=== PATIENT | female | born 1940 ===

== ENCOUNTER → 2019-05-10 | Outpatient (CLI) | payer MEDICARE ==
[~2019-05-10] MED LIST: ASPI-496 PO; ATOR10TA9 PO; BUPR150T13 PO; CALC500T43 PO; DENO60DI SQ; DILT120T3 PO; DONE5TAB7 PO; FLUT1BLS INH; HYDR-826 PO; MIRT45TA61 PO; ONDA8TAB9 PO; PANT40TA5 PO; SERT50TA28 PO; TIOT18CA INH; TRAZ50TA66 PO
== END | disposition home or self-care (01) ==
LOC: PETCFH 08:47
PROVIDERS: ATTEND Pathology Hematology
DX: C34.01 Malignant neoplasm of right main bronchus (principal); C78.1 Secondary malignant neoplasm of mediastinum; C77.8 Secondary and unspecified malignant neoplasm of lymph nodes of multiple regions; R91.8 Other nonspecific abnormal finding of lung field
CPT/HCPCS: 78815; A9552

== ENCOUNTER 2019-05-16 11:18 | Outpatient (CLI) | payer MEDICARE ==
[~2019-05-16] VITALS: Ht 177.8 cm; Wt 84.9 kg
== END 2019-05-16 23:59 | disposition home or self-care (01) ==
LOC: INFUSION 11:18
PROVIDERS: ATTEND Pathology Hematology
DX: Z02.9 Encounter for administrative examinations, unspecified (principal)

== ENCOUNTER 2019-05-19 09:17 | Outpatient (CLI) | payer MEDICARE | END 2019-05-19 23:59 | disposition home or self-care (01) | LOC: ROC 09:17 | PROVIDERS: ATTEND Radiology Radiation Oncology | DX: C34.11 Malignant neoplasm of upper lobe, right bronchus or lung (principal) | CPT/HCPCS: 99214; G0463 ==

== ENCOUNTER → 2019-06-05 | Outpatient (CLI) | payer MEDICARE ==
[~2019-06-05] MED LIST changes: +GADOTERATE 7.5 MMOL/15 ML SYR ONE
== END | disposition home or self-care (01) ==
LOC: CFH 15:59
PROVIDERS: ATTEND Radiology Radiation Oncology
DX: C79.51 Secondary malignant neoplasm of bone (principal); I10 Essential (primary) hypertension
CPT/HCPCS: 72158; A9575

== ENCOUNTER → 2019-08-14 | Outpatient (CLI) | payer MEDICARE ==
[~2019-08-14] MED LIST changes: -GADOTERATE 7.5 MMOL/15 ML SYR ONE; +OMNIPAQUE 350 MG/ML, 100ML BOTTLE ONE
== END | disposition home or self-care (01) ==
LOC: CFH 12:31
PROVIDERS: ATTEND Radiology Radiation Oncology
DX: C79.51 Secondary malignant neoplasm of bone (principal); C77.1 Secondary and unspecified malignant neoplasm of intrathoracic lymph nodes; J84.10 Pulmonary fibrosis, unspecified; R91.1 Solitary pulmonary nodule; K76.89 Other specified diseases of liver; N20.0 Calculus of kidney
CPT/HCPCS: 71260; 74177; Q9967

== ENCOUNTER 2019-08-24 09:12 | Outpatient (CLI) | payer MEDICARE ==
[~2019-08-24 09:12] MED LIST changes: -OMNIPAQUE 350 MG/ML, 100ML BOTTLE ONE
== END 2019-08-24 23:59 | disposition home or self-care (01) ==
LOC: ROC 09:12
PROVIDERS: ATTEND Radiology Radiation Oncology
DX: C77.1 Secondary and unspecified malignant neoplasm of intrathoracic lymph nodes (principal); C34.32 Malignant neoplasm of lower lobe, left bronchus or lung; C79.51 Secondary malignant neoplasm of bone
CPT/HCPCS: 99213; G0463

== ENCOUNTER → 2019-11-02 | Outpatient (CLI) | payer MEDICARE ==
[~2019-11-02] MED LIST changes: +OMNIPAQUE 350 MG/ML, 100ML BOTTLE ONE; -PANT40TA5 PO; +PANT40TA6 PO
== END | disposition home or self-care (01) ==
LOC: EDSTATUS 14:30 → CFH 14:36
PROVIDERS: ATTEND Pathology Hematology
DX: C79.51 Secondary malignant neoplasm of bone (principal); C34.01 Malignant neoplasm of right main bronchus; R91.1 Solitary pulmonary nodule; J98.4 Other disorders of lung; J84.10 Pulmonary fibrosis, unspecified; K76.89 Other specified diseases of liver; N20.0 Calculus of kidney; M89.9 Disorder of bone, unspecified
CPT/HCPCS: 71260; 74177; Q9967

== ENCOUNTER → 2019-12-07 | Outpatient (CLI) | payer MEDICARE ==
[~2019-12-07] MED LIST changes: +GADOTERATE 7.5 MMOL/15 ML VIAL ONE; -OMNIPAQUE 350 MG/ML, 100ML BOTTLE ONE
== END | disposition home or self-care (01) ==
LOC: RAD 12:41
PROVIDERS: ATTEND Radiology Radiation Oncology
DX: C79.51 Secondary malignant neoplasm of bone (principal); C77.1 Secondary and unspecified malignant neoplasm of intrathoracic lymph nodes; M50.31 Other cervical disc degeneration, high cervical region; M48.02 Spinal stenosis, cervical region; M25.78 Osteophyte, vertebrae
CPT/HCPCS: 72156; A9575

== ENCOUNTER → 2020-01-15 | Outpatient (CLI) | payer MEDICARE ==
[~2020-01-15] MED LIST changes: -GADOTERATE 7.5 MMOL/15 ML VIAL ONE; +OMNIPAQUE 350 MG/ML, 100ML BOTTLE ONE
== END | disposition home or self-care (01) ==
LOC: CFH 12:34
PROVIDERS: ATTEND Radiology Radiation Oncology
DX: C34.01 Malignant neoplasm of right main bronchus (principal); G95.89 Other specified diseases of spinal cord; K76.89 Other specified diseases of liver; R91.8 Other nonspecific abnormal finding of lung field
CPT/HCPCS: 71260; 74177; Q9967

== ENCOUNTER 2020-01-25 06:19 | Day surgery (SDC) | payer MEDICARE ==
[~2020-01-25] VITALS: Ht 152.4 cm; Wt 52.3 kg
[~2020-01-25 06:19] MED LIST changes: -OMNIPAQUE 350 MG/ML, 100ML BOTTLE ONE
[2020-01-25 07:22] VITALS: BP 132/72
[2020-01-25] MEDS ORDERED: SODIUM CHLORIDE 0.9% 1,000 ML IV SCH (07:30)
[2020-01-25] MEDS ORDERED: FENTANYL PF 100 MCG/2ML ONE (08:13)
[2020-01-25] MEDS ORDERED: FLUMAZENIL 0.1 MG/1 ML, 5ML ONE (08:13)
[2020-01-25] MEDS ORDERED: MIDAZOLAM 1 MG/ML, 5ML ONE ×2 (08:13)
[2020-01-25] MEDS ORDERED: NALOXONE 1 MG/ML, 2ML ONE (08:14)
== END 2020-01-25 09:40 | disposition home or self-care (01) ==
LOC: RAD 06:19 → OUT 09:40
PROVIDERS: ATTEND Pathology Hematology
DX: R91.1 Solitary pulmonary nodule (principal); C34.01 Malignant neoplasm of right main bronchus; J44.9 Chronic obstructive pulmonary disease, unspecified; I10 Essential (primary) hypertension; F17.210 Nicotine dependence, cigarettes, uncomplicated; Z79.899 Other long term (current) drug therapy; Z88.5 Allergy status to narcotic agent; Z91.048 Other nonmedicinal substance allergy status; Z80.0 Family history of malignant neoplasm of digestive organs; Z83.2 Family history of diseases of the blood and blood-forming organs and certain disorders involving the immune mechanism; Z83.49 Family history of other endocrine, nutritional and metabolic diseases
CPT/HCPCS: 32405; 99156; J2250; J3010; J7030; 77012; C2613; J2310

== ENCOUNTER 2020-02-13 07:43 | Outpatient (CLI) | payer MEDICARE | END 2020-02-13 23:59 | disposition home or self-care (01) | LOC: ROC 07:43 | PROVIDERS: ATTEND Radiology Radiation Oncology | DX: Z08 Encounter for follow-up examination after completed treatment for malignant neoplasm (principal); Z85.118 Personal history of other malignant neoplasm of bronchus and lung; I10 Essential (primary) hypertension; Z79.899 Other long term (current) drug therapy | CPT/HCPCS: 99212; G0463 ==

== ENCOUNTER → 2020-05-30 | Outpatient (CLI) | payer MEDICARE ==
[~2020-05-30] MED LIST changes: +OMNIPAQUE 350 MG/ML, 100ML BOTTLE ONE
== END | disposition home or self-care (01) ==
LOC: CFH 14:01
PROVIDERS: ATTEND Radiology Radiation Oncology
DX: C77.1 Secondary and unspecified malignant neoplasm of intrathoracic lymph nodes (principal); C34.32 Malignant neoplasm of lower lobe, left bronchus or lung; I10 Essential (primary) hypertension; K76.89 Other specified diseases of liver
CPT/HCPCS: 71260; 74177; Q9967

== ENCOUNTER → 2020-06-12 | Outpatient (CLI) | payer MEDICARE ==
[~2020-06-12] MED LIST changes: -OMNIPAQUE 350 MG/ML, 100ML BOTTLE ONE
== END | disposition home or self-care (01) ==
LOC: RAD 11:23
PROVIDERS: ATTEND Pathology Hematology
DX: C34.01 Malignant neoplasm of right main bronchus (principal)
CPT/HCPCS: 78306; A9503

== ENCOUNTER 2020-06-13 07:46 | Outpatient (CLI) | payer MEDICARE | END 2020-06-13 23:59 | disposition home or self-care (01) | LOC: ROC 07:46 | PROVIDERS: ATTEND Radiology Radiation Oncology | DX: Z08 Encounter for follow-up examination after completed treatment for malignant neoplasm (principal); Z85.118 Personal history of other malignant neoplasm of bronchus and lung; J44.9 Chronic obstructive pulmonary disease, unspecified; I10 Essential (primary) hypertension; G89.3 Neoplasm related pain (acute) (chronic); Z79.899 Other long term (current) drug therapy; Z87.891 Personal history of nicotine dependence | CPT/HCPCS: 99213; G0463 ==

== ENCOUNTER → 2020-09-17 | Outpatient (CLI) | payer MEDICARE | END | disposition home or self-care (01) | LOC: RAD 10:29 | PROVIDERS: ATTEND Pathology Hematology | DX: C34.01 Malignant neoplasm of right main bronchus (principal) | CPT/HCPCS: 78306; A9503 ==

== ENCOUNTER → 2020-09-30 | Outpatient (CLI) | payer MEDICARE ==
[~2020-09-30] MED LIST changes: +OMNIPAQUE 350 MG/ML, 100ML BOTTLE ONE
== END | disposition home or self-care (01) ==
LOC: CFH 10:48
PROVIDERS: ATTEND Radiology Radiation Oncology
DX: C77.1 Secondary and unspecified malignant neoplasm of intrathoracic lymph nodes (principal); N20.0 Calculus of kidney; J98.4 Other disorders of lung; K76.89 Other specified diseases of liver
CPT/HCPCS: 71260; 74177; Q9967

== ENCOUNTER 2020-10-02 09:38 | Outpatient (CLI) | payer MEDICARE ==
[~2020-10-02 09:38] MED LIST changes: -OMNIPAQUE 350 MG/ML, 100ML BOTTLE ONE
== END 2020-10-02 23:59 | disposition home or self-care (01) ==
LOC: ROC 09:38
PROVIDERS: ATTEND Radiology Radiation Oncology
DX: Z08 Encounter for follow-up examination after completed treatment for malignant neoplasm (principal); Z85.118 Personal history of other malignant neoplasm of bronchus and lung; Z85.830 Personal history of malignant neoplasm of bone; G89.3 Neoplasm related pain (acute) (chronic); Z79.899 Other long term (current) drug therapy
CPT/HCPCS: 99213; G0463